=== PATIENT | male | born 1970 | race Caucasian/White ===

== ENCOUNTER 2021-03-04 06:43 | Emergency (ER) | payer BC ==
[2021-03-04] MEDS ORDERED: MEDROL DOSEPAK 24 MG PO (07:32)
[2021-03-04] MEDS ORDERED: PEPCID40 MG PO (07:32)
[2021-03-04] MEDS ORDERED: BENADRYL 25MG C25 MG PO (07:32)
== END 2021-03-04 08:15 | disposition home or self-care (01) ==
LOC: ER1 06:43
DX: R21 Rash and other nonspecific skin eruption (principal); T49.3X5A Adverse effect of emollients, demulcents and protectants, initial encounter; I10 Essential (primary) hypertension; Z79.899 Other long term (current) drug therapy; Z88.1 Allergy status to other antibiotic agents; Z88.8 Allergy status to other drugs, medicaments and biological substances
CPT/HCPCS: 96372; 99282; J1100